=== PATIENT | male | born 1950 | race Caucasian/White ===

== ENCOUNTER → 2019-03-30 | Outpatient (CLI) | payer OTHER ==
--- NOTE | 2019-03-30 14:28 | 2DMMODE ---
[place] [address] 2 D/M-MODE ECHOCARDIOGRAM Name: YANIRA MEDINA Room: [facility]#: [id number] Admission: 03/30/19 Attend Phys: Michael Espinoza MD Discharge: Date of : 48 Date of Service: 03/30/19 1428 Report #: [id number] THIS REPORT FOR: //name// APPROVED REPORT Study performed: 03/30/2019 13:13:51 EXAM: Comprehensive 2D, Doppler, and color-flow Echocardiogram Patient Location: Out-Patient BSA: 2.28 HR: 85 bpm BP: 132/80 mmHg Other Information Study Quality: Good Indications CAD 2D Dimensions IVSd: 12.40 (7-11mm) LVOT Diam: 20.33 (18-24mm) LVDd: 44.56 mm PWd: 9.94 (7-11mm) Ascending Ao: 30.68 (22-36mm) LVDs: 26.44 (25-40mm) Aortic Root: 30.92 mm Volumes Left Atrial Volume (Systole) LA ESV Index: 30.80 mL/m2 Aortic Valve AoV Peak Jordy.: 1.23 m/s AO Peak Gr.: 6.04 mmHg LVOT Max P.76 mmHg AO Mean Gr.: 3.57 mmHg LVOT Mean P.36 mmHg LVOT Max V: 0.83 m/s AO V2 VTI: 24.97 cm LVOT Mean V: 0.54 m/s SRAVANI (VTI): 2.45 cm2 LVOT V1 VTI: 18.88 cm Mitral Valve MV Decel. Time: 169.90 ms MV E Max Jordy.: 1.04 m/s MV PHT: 49.27 ms MVA (PHT): 4.47 [place] [address] 2 D/M-MODE ECHOCARDIOGRAM Name: CONNERAUDELIAYANIRA Room: [facility]#: [id number] Admission: 03/30/19 Attend Phys: Michael Espinoza MD Discharge: Date of : 48 Date of Service: 03/30/19 1428 Report #: [id number] TDI E/Lateral E': 8.67 E/Medial E': 8.00 Medial E' Jordy.: 0.13 m/s Lateral E' Jordy.: 0.12 m/s Pulmonary Valve PV Peak Jordy.: 0.97 m/s PV Peak Gr.: 3.73 mmHg Tricuspid Valve RAP Estimate: 5.00 mmHg TR Peak Gr.: 27.28 mmHg RVSP: 32.28 mmHg PA Pressure: 32.28 mmHg Left Ventricle The left ventricle is normal size. There is normal LV segmental wall motion. There is normal left ventricular wall thickness. Left ventricular systolic function is normal. LVEF is 50-55%. This study is not technically sufficient to allow evaluation of the LV diastolic function due to atrial fibrillation. Right Ventricle The right ventricle is normal size. The right ventricular systolic function is normal. Atria Left atrium is mildly dilated. Right atrium is mildly dilated. Aortic Valve Aortic valve is mildly calcified. No aortic regurgitation is present. There is no aortic valvular stenosis. Mitral Valve The mitral valve is normal in structure. Mild mitral regurgitation. No evidence of mitral valve stenosis. Tricuspid Valve The tricuspid valve is normal in structure. Mild tricuspid regurgitation. The RVSP is 30-35 mmHg. Pulmonic Valve The pulmonary valve is normal in structure. There is no pulmonic valvular regurgitation. Great Vessels The aortic root is normal in size. IVC [place] [address] 2 D/M-MODE ECHOCARDIOGRAM Name: YANIRA MEDINA Room: [facility]#: [id number] Admission: 03/30/19 Attend Phys: Michael Espinoza MD Discharge: Date of : 48 Date of Service: 03/30/19 1428 Report #: [id number] collapses >50% with inspiration. Pericardium There is no pericardial effusion. <Conclusion> The left ventricle is normal size. There is normal left ventricular wall thickness. Left ventricular systolic function is normal. LVEF is 50-55%. This study is not technically sufficient to allow evaluation of the LV diastolic function due to atrial fibrillation. Left atrium is mildly dilated. Right atrium is mildly dilated. Aortic valve is mildly calcified. Mild mitral regurgitation. Mild tricuspid regurgitation. The RVSP is 30-35 mmHg. IVC is normal in size and collapses >50% with inspiration. <ELECTRONICALLY SIGNED> By: Dominick Cruz MD, FACC 03/30/19 1428 1428 1428 Dominick Cruz MD, FACC /INF
== END ==
LOC: M.CRD 12:54
DX: I08.1 Rheumatic disorders of both mitral and tricuspid valves (principal)